=== PATIENT | female | born 1950 | race Caucasian/White ===

== ENCOUNTER → 2016-11-11 | Outpatient (CLI) | payer MEDICARE ==
[2016-01-12 12:45] VITALS: BP 155/73
[~2016-11-11] MED LIST: ALLO100T PO; CYCL10TA2 PO; FLUT1DIS3 IH; MONT10TA6 PO; NIAC500T PO
--- NOTE | 2016-11-14 17:23 | CARD ---
APPROVED REPORT Test Type: Exercise Stress Nurse/Tech: yon tovar Test Indications: soa Cardiac History and Allergies: HTN, HIGH CHOLESTEROL, SEE EHR Medications: SEE EHR Medical History: ASTHMA, HX OF PNEUMONIA,SEE EHR Resting ECG: SR Resting Heart Rate: 74 bpm Resting Blood Pressure: 160/78mmHg Pretest Chest Pain: No chest pain Nurse/Tech Notes NO RESIPATORY DISTRESS NOTED PRIOR TO EXERCISE. Consent: The procedure was explained to the patient in lay terms. Informed consent was witnessed. Guero eout was entered into GoTable. History and Stress Test performed by YON DELACRUZ Stress Symptoms SOA, ALLTHOUGH PT HAD INCREASE WORK OF BREATHING ABLE TO ANSWER QUESTIONS AT STAGE II, NO WHEEZING NO ENDY. POST EXERCISE Reason for Termination: Reached target heart rate Target HR: 131 Max HR: 143 bpm 93% of Maximum Predicted HR: 154 bpm Exercise duration: 5 min:sec, 2 Stage Exercise capacity: 7METs Max Blood Pressure: 193/69mmHg Blood Pressure response to exercise: Normal blood pressure response during stress. Heart Rate response to exercise: WNL Chest Pain: No. Arrhythmia: No. ST Change: No. INTERPRETATION Stress EKG Conclusion: THIS IS A NEGATIVE STRESS TEST FOR ISCHEMIA BY EKG. <Conclusion> THIS IS A NEGATIVE STRESS TEST FOR ISCHEMIA IN A PT WITH A POOR TO MODERATE EXERCISE TOLERANCE AND A NORMAL HEMODYNAMIC RESPONSE TO EXERCISE
== END | disposition home or self-care (01) ==
LOC: ECHO 12:17
PROVIDERS: ATTEND Internal Medicine Pulmonary Disease
DX: R06.02 Shortness of breath (principal); I10 Essential (primary) hypertension; J45.909 Unspecified asthma, uncomplicated; E78.00 Pure hypercholesterolemia, unspecified; Z87.01 Personal history of pneumonia (recurrent)
CPT/HCPCS: 93017

== ENCOUNTER → 2017-07-24 | Outpatient (CLI) | payer MEDICARE ==
[2017-04-15 15:00] VITALS: BP 130/57
[~2017-07-24] MED LIST changes: +ALBU8.5H8 INH; +ASPI-482 PO; +CITA10TA4 PO; +FLUT12AE INH; +LEVO500T59 PO; +MONT10TA9 PO; +PANT40TA5 PO; +VALS160T21 PO
--- NOTE | 2017-07-24 12:54 | RAD ---
CT chest without IV contrast Indication: Follow-up abnormal chest x-ray Technique: CT chest without IV contrast with multiplanar reformats. Comparison: CT chest from 04/11/2017 Findings: Clear neck base. Heart is normal in size. No pericardial or pleural effusion. 1.3 x 1.3 cm left axillary lymph node noted, stable from previous study, likely reactive. No left axillary, mediastinal or hilar adenopathy. Near complete resolution of previously seen pulmonary abnormalities. Small area of centrilobular nodules and tree-in-bud opacities seen in the right upper lobe (series 2 image 20). Stable 2 mm nodule in the right middle lobe on (series 2 image 33). Patchy opacities are seen in the right middle lobe and lingula. Dystrophic calcifications are seen in the left upper lobe. Visualized sections through the liver, spleen, pancreas, adrenals are within normal limits. No suspicious bony lesion. Impression: Significant interval improvement in previously seen pulmonary abnormalities with residual findings in the right upper lobe, lingula and right middle lobe. Lungs are most likely infectious in nature. Follow-up CT as clinically needed. PQRS Compliance Statement: One or more of the following individualized dose reduction techniques were utilized for this examination: 1. Automated exposure control 2. Adjustment of the mA and/or kV according to patient size 3. Use of iterative reconstruction technique
== END | disposition home or self-care (01) ==
LOC: CT 10:13
PROVIDERS: ATTEND Internal Medicine Pulmonary Disease
DX: R91.8 Other nonspecific abnormal finding of lung field (principal)
CPT/HCPCS: 71250

== ENCOUNTER → 2017-12-19 | Outpatient (CLI) | payer MEDICARE | END | disposition home or self-care (01) | LOC: US 07:52 | DX: E04.1 Nontoxic single thyroid nodule (principal) | CPT/HCPCS: 76536 ==

== ENCOUNTER 2018-05-11 15:17 | Emergency (ER) | payer MEDICARE ==
[~2018-05-11] VITALS: Ht 165.1 cm; Wt 94.3 kg
[~2018-05-11 15:17] MED LIST changes: -VALS160T21 PO; +VALS160T27 PO
[2018-05-11] MEDS ORDERED: HYDROcodone/APAP 5/325MG 1 TAB TABLET PO ONE (15:30)
--- NOTE | 2018-05-11 15:49 | EKG ---
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
--- NOTE | 2018-05-11 15:50 | PHYS DOC ---
Past Medical History Past Medical History: Asthma, Hypertension Additional Past Medical Histor: Hyperlipiedema, GOUT Past Surgical History: Cholecystectomy, Tonsillectomy, Other Additional Past Surgical Histo: NECK, "tie my kidney up, it fell down" Alcohol Use: None Drug Use: None Adult General Chief Complaint Chief Complaint: CHEST WALL PAIN HPI HPI Patient is a 67 year old female who presents with right back of shoulder, right shoulder and right chest pain since 1430 today. Patient states it hurts to breathe and is sharp. Patient denies shortness of air. Patient states she has had a upper respiratory infection with a cough, head congestion, and sneezing since Monday. Review of Systems Review of Systems Constitutional: Denies fever or chills [] Eyes: Denies change in visual acuity, redness, or eye pain [] HENT: Nasal congestion. Denies sore throat [] Respiratory: Cough. Denies shortness of breath [] Cardiovascular: Right chest pain, right shoulder blade pain GI: Denies abdominal pain, nausea, vomiting, bloody stools or diarrhea [] : Denies dysuria or hematuria [] Musculoskeletal: Denies back pain or joint pain [] Integument: Denies rash or skin lesions [] Neurologic: Denies headache, focal weakness or sensory changes [] Endocrine: Denies polyuria or polydipsia [] All other systems were reviewed and found to be within normal limits, except as documented in this note. Current Medications Current Medications Current Medications Medications (Trade) Dose Ordered Sig/Amna Start Time Stop Time Status Last Admin Dose Admin Acetaminophen/ Hydrocodone Bitart (Lortab 5/325) 1 tab 1X ONCE 05/11/18 15:30 05/11/18 15:41 DC 05/11/18 16:38 1 TAB Albuterol/ Ipratropium (Duoneb) 3 ml 1X ONCE 05/11/18 16:45 05/11/18 16:46 DC 05/11/18 16:49 3 ML Ondansetron HCl (Zofran) 4 mg 1X ONCE 05/11/18 16:15 05/11/18 16:18 DC 05/11/18 16:37 4 MG Prednisone (Prednisone) 50 mg 1X ONCE 05/11/18 16:45 05/11/18 16:46 DC 05/11/18 16:43 50 MG Allergies Allergies Allergies Coded Allergies Type Severity Reaction Last Updated Verified No Known Drug Allergies 08/19/13 No Physical Exam Physical Exam Constitutional: Well developed, well nourished, no acute distress, non-toxic appearance. [] HENT: Normocephalic, atraumatic, bilateral external ears normal, oropharynx moist, no oral exudates, nose normal. [] Eyes: PERRLA, EOMI, conjunctiva normal, no discharge. [] Neck: Normal range of motion, no tenderness, supple, no stridor. [] Cardiovascular:Heart rate regular rhythm, no murmur. Right chest and shoulder are tender to palpation.[] Lungs & Thorax: Bilateral breath sounds clear to auscultation [] Abdomen: Bowel sounds normal, soft, no tenderness, no masses, no pulsatile masses. [] Skin: Warm, dry, no erythema, no rash. [] Back: No tenderness, no CVA tenderness. [] Extremities: No tenderness, no cyanosis, no clubbing, ROM intact, no edema. [] Neurologic: Alert and oriented X 3, normal motor function, normal sensory function, no focal deficits noted. [] Psychologic: Affect normal, judgement normal, mood normal. [] Current Patient Data Vital Signs Vital Signs Date Time Temp Pulse Resp B/P (MAP) Pulse Ox O2 Delivery O2 Flow Rate FiO2 05/11/18 16:50 95 Nasal Cannula 05/11/18 16:38 16 05/11/18 15:20 99.4 95 193/72 (112) 99.4 Lab Values Laboratory Tests Test 05/11/18 16:00 White Blood Count 11.9 x10^3/uL (4.0-11.0) H Red Blood Count 4.90 x10^6/uL (3.50-5.40) Hemoglobin 14.0 g/dL (12.0-15.5) Hematocrit 41.6 % (36.0-47.0) Mean Corpuscular Volume 85 fL (79-100) Mean Corpuscular Hemoglobin 29 pg (25-35) Mean Corpuscular Hemoglobin Concent 34 g/dL (31-37) Red Cell Distribution Width 14.1 % (11.5-14.5) Platelet Count 191 x10^3/uL (140-400) Neutrophils (%) (Auto) 75 % (31-73) H Lymphocytes (%) (Auto) 11 % (24-48) L Monocytes (%) (Auto) 9 % (0-9) Eosinophils (%) (Auto) 4 % (0-3) H Basophils (%) (Auto) 0 % (0-3) Neutrophils # (Auto) 9.0 x10^3uL (1.8-7.7) H Lymphocytes # (Auto) 1.3 x10^3/uL (1.0-4.8) Monocytes # (Auto) 1.1 x10^3/uL (0.0-1.1) Eosinophils # (Auto) 0.5 x10^3/uL (0.0-0.7) Basophils # (Auto) 0.0 x10^3/uL (0.0-0.2) D-Dimer (Ale) 0.45 ug/mlFEU (0.00-0.50) Sodium Level 140 mmol/L (136-145) Potassium Level 3.7 mmol/L (3.5-5.1) Chloride Level 104 mmol/L (98-107) Carbon Dioxide Level 25 mmol/L (21-32) Anion Gap 11 (6-14) Blood Urea Nitrogen 14 mg/dL (7-20) Creatinine 0.9 mg/dL (0.6-1.0) Estimated GFR (Cockcroft-Gault) 62.5 Glucose Level 103 mg/dL (70-99) H Calcium Level 9.2 mg/dL (8.5-10.1) Troponin I Quantitative < 0.017 ng/mL (0.000-0.055) Laboratory Tests 05/11/18 16:00 Laboratory Tests 05/11/18 16:00 EKG EKG Sinus rhythm, no STEMI[] Interpretation Time: [address] Silva Radiology/Procedures Radiology/Procedures Chest x-ray Impressions: [facility] [address] [place], [place] [id number] IMAGING REPORT Signed PATIENT: ARACELI CESPEDES ACCOUNT: [id number] : 1950 LOCATION: ER AGE: 67 SEX: F EXAM STATUS: PRE ER ORD. PHYSICIAN: TERRANCE TEE APRN REASON: chest pain, cough. PROCEDURE: CHEST PA & LATERAL EXAM: Chest, 2 views. HISTORY: Cough. COMPARISON: CT dated 07/24/2017. FINDINGS: Frontal and lateral views of the chest are obtained. There is diffuse lower lobe predominant increased interstitial opacity without meredith congestion. There is no consolidated infiltrate. There is suspected emphysema. The heart is normal in size. There are calcified granulomas. There is cervical spinal fusion instrumentation. IMPRESSION: 1. Mild diffuse lower lobe predominant increased interstitial opacity without meredith congestion or focal infiltrate. 2. Mild emphysema. Electronically signed by: Brittney Bettencourt MD (05/11/2018 4:26 PM) [facility] DICTATED and SIGNED BY: BRITTNEY BETTENCOURT MD DATE: 05/11/18 1519 Course & Med Decision Making Course & Med Decision Making Patient is a 67 year old female who presents with right back of shoulder, right shoulder and right chest pain since 1430 today. Patient states it hurts to breathe and is sharp. Patient denies shortness of air. Patient states she has had a upper respiratory infection with a cough, head congestion, and sneezing since Monday. Patient denies fever. Patient states that she took some DayQuil today and use some icy hot and states it has not helped her. Patient denies urinary symptoms, nausea, vomiting, diarrhea. Patient states she has not been coughing up any mucus. Patient states that she does have yellow mucus when she blows her nose. She rates her pain a 7 out of 10. Patient has a history of pneumonia in 2016, pneumonia and sepsis in 2017, asthma. Upon examination patient's lungs are clear to auscultation. Patient's EKG is normal sinus rhythm and read by Dr. Silva. Patient has no extremity edema or numbness and tingling. Patient speaks in full sentences. When palpating patient's chest the right side of her chest and shoulder and back and shoulder she states is tender. Patients skin is pink warm and dry. Patient is temperature is 99.4. Heart rate 95, respirations are 19, patient is 96% on room air. Patient's chest x-ray shows 1. Mild diffuse lower lobe predominant increased interstitial opacity without meredith congestion or focal infiltrate. 2. Mild emphysema. WBC is 11.9. Troponin is normal. Patient is given a DuoNeb and prednisone 50mg. patient will be sent home with a prescription for azithromycin and prednisone that she can start tomorrow. Patient should follow up with her primary care as soon as possible. I have gone over the plan for this patient with Dr Silva. Patient is discharged home in stable condition. [] Dragon Disclaimer Dragon Disclaimer This electronic medical record was generated, in whole or in part, using a voice recognition dictation system. Departure Departure Impression: Primary Impression: Respiratory infection Additional Impressions: Cough Chest wall pain Disposition: HOME, SELF-CARE Condition: STABLE Referrals: CAROLINA IRIZARRY MD (PCP) Patient Instructions: Chest Wall Pain, Cough, Adult Additional Instructions: Follow up with your primary care physician. Take medications as prescribed. Scripts Prednisone (PREDNISONE) 50 Mg Tablet 1 TAB PO DAILY, #4 TAB Prov: TERRANCE TEE APRN 05/11/18 Azithromycin (AZITHROMYCIN TABLET) 250 Mg Tablet 1 PKG PO UD, #6 TAB Prov: TERRANCE TEE APRN 05/11/18 Problem Qualifiers TERRANCE TEE APRN May 11, 2018 15:50
[2018-05-11] MEDS ORDERED: ONDANSETRON PF 4 MG/2 ML VIAL. IV ONE (16:15)
[2018-05-11 16:16] LABS: BASO % 0 % (0-3); EOS # 0.5 x10^3/uL (0.0-0.7); EOS % 4 % (0-3); HEMATOCRIT 41.6 % (36.0-47.0); LYMPH # 1.3 x10^3/uL (1.0-4.8); LYMPH % 11 % (24-48); MEAN CORPUSCULAR HEMOGLOBIN 29 pg (25-35); MEAN CORPUSCULAR HGB CONC 34 g/dL (31-37); MEAN CORPUSCULAR VOLUME 85 fL (79-100); MONO # 1.1 x10^3/uL (0.0-1.1); MONO % 9 % (0-9); NEUT % 75 % (31-73); PLATELET COUNT 191 x10^3/uL (140-400); RED CELL DISTRIBUTION WIDTH 14.1 % (11.5-14.5); WHITE BLOOD COUNT 11.9 x10^3/uL (4.0-11.0)
[2018-05-11 16:20] LABS: CALCIUM 9.2 mg/dL (8.5-10.1); CREATININE 0.9 mg/dL (0.6-1.0); GFR 62.5; POTASSIUM 3.7 mmol/L (3.5-5.1)
--- NOTE | 2018-05-11 16:30 | RAD ---
EXAM: Chest, 2 views. HISTORY: Cough. COMPARISON: CT dated 07/24/2017. FINDINGS: Frontal and lateral views of the chest are obtained. There is diffuse lower lobe predominant increased interstitial opacity without meredith congestion. There is no consolidated infiltrate. There is suspected emphysema. The heart is normal in size. There are calcified granulomas. There is cervical spinal fusion instrumentation. IMPRESSION: 1. Mild diffuse lower lobe predominant increased interstitial opacity without meredith congestion or focal infiltrate. 2. Mild emphysema. Electronically signed by: Brittney Nicholson MD (05/11/2018 4:26 PM) [place] [id number]
[2018-05-11] MEDS ORDERED: AZIT250T6 PO (16:44)
[2018-05-11] MEDS ORDERED: PRED50TA PO (16:44)
[2018-05-11] MEDS ORDERED: IPRATRPIUM/ALBUTEROL 0.5/2.5MG 3 ML NEBU. NEB ONE (16:45)
[2018-05-11] MEDS ORDERED: predniSONE 10 MG TABLET PO ONE (16:45)
[2018-05-11 17:01] VITALS: BP 143/63
== END 2018-05-11 17:28 | disposition home or self-care (01) ==
LOC: ER 15:17
DX: R07.89 Other chest pain (principal); J06.9 Acute upper respiratory infection, unspecified; M25.511 Pain in right shoulder; J45.909 Unspecified asthma, uncomplicated; E78.5 Hyperlipidemia, unspecified; I10 Essential (primary) hypertension; M10.9 Gout, unspecified
CPT/HCPCS: 36415; 71046; 80048; 84484; 85025; 85379; 93005; 94640; 96374; 99285; J2405; J7512; J7620

== ENCOUNTER 2020-12-28 12:28 | Emergency (ER) | payer MEDICARE ==
[~2020-12-28] VITALS: Ht 165.1 cm; Wt 91.0 kg
[~2020-12-28 12:28] MED LIST changes: -AZIT250T PO
--- NOTE | 2020-12-28 13:30 | ED.ADGEN ---
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 6 days ago patient had a surgery for a partial left nephrectomy at done, the next day when she woke up she says she was very short of breath and had O2 sats below 90%. Denies any chest pain. Patient states there was a x-ray done and she was placed on oxygen and sent home with oxygen. Patient was having a mass removed that is likely cancerous from her kidney. Is not on any blood thinners. Patient has a history of mild asthma that is well maintained and has not had problems with it recently. Denies any fevers, but has had a cough with blood. Review of Systems: Review of Systems: All other systems within normal limits except for as noted in the HPI Current Medications: Current Medications Medications (Trade) Dose Ordered Sig/Amna Start Time Stop Time Status Last Admin Dose Admin Info (CONTRAST GIVEN -- Rx MONITORING) 1 each PRN DAILY PRN 12/28/20 13:45 12/30/20 13:44 Iohexol (Omnipaque 350 Mg/ml) 100 ml 1X ONCE 12/28/20 13:45 12/28/20 13:46 DC 12/28/20 14:14 100 ML Allergies: Allergies: Allergies Coded Allergies Type Severity Reaction Last Updated Verified No Known Drug Allergies 08/19/13 No Physical Exam: PE: Constitutional: Well developed, well nourished, no acute distress, non-toxic appearance. [] HENT: Normocephalic, atraumatic, bilateral external ears normal, nose normal. [] Eyes: PERRLA, conjunctiva normal, no discharge. [] Neck: No rigidity, supple, no stridor. [] Cardiovascular: Regular rate and rhythm, brisk cap refill [] Lungs & Thorax: Non labored symmetric respirations, no tachypnea or respiratory distres faint and expiratory wheezes bilaterally [] Abdomen: Soft, nondistended, well-healing left mid abdominal surgical scar with ecchymosis. Skin: Warm, dry, no erythema, no rash. [] Back: Unremarkable Extremities: No deformities, range of motion grossly intact, no lower extremity edema [] Neurologic: Alert and oriented X 3, no focal deficits noted. [] Psychologic: Affect normal, judgement normal, mood normal. [] Current Patient Data: Labs: Laboratory Tests Test 12/28/20 13:33 White Blood Count 7.8 x10^3/uL (4.0-11.0) Red Blood Count 4.35 x10^6/uL (3.50-5.40) Hemoglobin 12.4 g/dL (12.0-15.5) Hematocrit 35.1 % (36.0-47.0) L Mean Corpuscular Volume 81 fL (79-100) Mean Corpuscular Hemoglobin 29 pg (25-35) Mean Corpuscular Hemoglobin Concent 35 g/dL (31-37) Red Cell Distribution Width 13.4 % (11.5-14.5) Platelet Count 281 x10^3/uL (140-400) Neutrophils (%) (Auto) 68 % (31-73) Lymphocytes (%) (Auto) 19 % (24-48) L Monocytes (%) (Auto) 10 % (0-9) H Eosinophils (%) (Auto) 3 % (0-3) Basophils (%) (Auto) 1 % (0-3) Neutrophils # (Auto) 5.3 x10^3/uL (1.8-7.7) Lymphocytes # (Auto) 1.5 x10^3/uL (1.0-4.8) Monocytes # (Auto) 0.8 x10^3/uL (0.0-1.1) Eosinophils # (Auto) 0.2 x10^3/uL (0.0-0.7) Basophils # (Auto) 0.0 x10^3/uL (0.0-0.2) Prothrombin Time 12.8 SEC (11.7-14.0) Prothrombin Time INR 1.0 (0.8-1.1) Troponin I Quantitative < 0.017 ng/mL (0.000-0.055) Laboratory Tests 12/28/20 13:33 Vital Signs: Vital Signs Date Time Temp Pulse Resp B/P (MAP) Pulse Ox O2 Delivery O2 Flow Rate FiO2 12/28/20 13:20 98.6 71 16 144/71 (95) 96 Room Air 98.6 EKG: EKG: Sinus rhythm, heart rate 60 bpm, normal axis, no ST elevation or depression, no ectopy. [] Heart Score: C/O Chest Pain: No Risk Factors: Risk Factors: DM, Current or recent (<one month) smoker, HTN, HLP, family history of CAD, obesity. Risk Scores: Score 0 - 3: 2.5% MACE over next 6 weeks - Discharge Home Score 4 - 6: 20.3% MACE over next 6 weeks - Admit for Clinical Observation Score 7 - 10: 72.7% MACE over next 6 weeks - Early Invasive Strategies Radiology/Procedures: Radiology/Procedures: PATIENT: ARACELI CESPEDES GACCOUNT: [id number]#: [id number] : 1950 LOCATION: ER AGE: 70 SEX: F EXAM STATUS: REG ER ORD. PHYSICIAN: ZORAIDA LINDA MD REASON: hypoxia, SOB PROCEDURE: CT ANGIOGRAPHY CHEST CHEST CT WITH CONTRAST CLINICAL INDICATIONS: Hypoxia. Shortness of breath. TECHNIQUE: After IV infusion of 100 cc of Omnipaque 350, helical CT scanning of the chest through the level of the adrenal glands was performed. PQRS compliance Statement One or more of the following individualized dose reduction techniques were utilized for this study: 1. Automated exposure control 2. Adjustment of the mA and/or kV according to patient size 3. Use of iterative reconstruction technique FINDINGS: No pulmonary embolism is evident. The heart size is normal and no pericardial effusion is seen. No focal aneurysmal dilatation or dissection of the thoracic aorta is seen. Reactive hilar and mediastinum lymph nodes are seen. Otherwise no bulky thoracic lymphadenopathy is seen. Small right-sided pleural effusion is seen. No pneumothorax is seen. There are bilateral groundglass lung infiltrates. Small peripheral subpleural lung infiltrates are seen within the right upper lobe. More consolidative infiltrate is seen within the posterior basal segment of the right lower lobe and superior segment of the right lower lobe. There is an infiltrate present within the inferior segment lingula posteriorly. There is a small focus of adherent mucus along the posterior wall of the left mainstem bronchus. No lytic process is seen. There is a mass of the medial aspect of the right breast measuring about 27 mm. There is no adrenal enlargement. A tiny hiatal hernia is evident. IMPRESSION: No pulmonary embolism. Bilateral groundglass lung infiltrates. More consolidative infiltrate is present within the right lower lobe. Correlation with Covid 19 test is recommended. Reactive hilar and mediastinal lymph nodes. 27 mm mass of the right breast. Recommend outpatient diagnostic mammography. [] Course & Med Decision Making: Course & Med Decision Making Pertinent Labs and Imaging studies reviewed. (See chart for details) Patient has patchy groundglass atypical opacities on her CT, has had both of her Covid vaccines about 3 weeks out now. [] Dragon Disclaimer: Dragon Disclaimer: This electronic medical record was generated, in whole or in part, using a voice recognition dictation system. Departure Departure Impression: Primary Impression: Atypical pneumonia Disposition: HOME / SELF CARE / HOMELESS Condition: STABLE Referrals: DENI MEZA DO (PCP) Patient Instructions: Oxygen Use at Home Additional Instructions: Continue to use your incentive spirometer and home oxygen as needed to maintain a O2 level above 92%. Incidental small breast mass identified on CT, recommend follow-up with mammogram. Scripts Azithromycin (ZITHROMAX) 250 Mg Tablet 1 PKG PO UD for antibiotic, #6 TAB Prov: ZORAIDA LINDA MD 12/28/20 Prednisone (PREDNISONE) 50 Mg Tablet 1 TAB PO DAILY for steroid for 5 Days, #5 TAB Prov: ZORAIDA LINDA MD 12/28/20 ZORAIDA LINDA MD December 28, 2020 13:30
[2020-12-28] MEDS ORDERED: CONTRAST GIVEN. MC PRN (13:45)
[2020-12-28] MEDS ORDERED: IOHEXOL 350 MG/ML 100 ML VIAL. IV ONE (13:45)
[2020-12-28 13:54] LABS: BASO % 1 % (0-3); EOS # 0.2 x10^3/uL (0.0-0.7); EOS % 3 % (0-3); HEMATOCRIT 35.1 % (36.0-47.0); HEMOGLOBIN 12.4 g/dL (12.0-15.5); LYMPH # 1.5 x10^3/uL (1.0-4.8); LYMPH % 19 % (24-48); MEAN CORPUSCULAR HEMOGLOBIN 29 pg (25-35); MEAN CORPUSCULAR HGB CONC 35 g/dL (31-37); MEAN CORPUSCULAR VOLUME 81 fL (79-100); MONO # 0.8 x10^3/uL (0.0-1.1); MONO % 10 % (0-9); NEUT # 5.3 x10^3/uL (1.8-7.7); NEUT % 68 % (31-73); PLATELET COUNT 281 x10^3/uL (140-400); RED BLOOD COUNT 4.35 x10^6/uL (3.50-5.40); RED CELL DISTRIBUTION WIDTH 13.4 % (11.5-14.5); WHITE BLOOD COUNT 7.8 x10^3/uL (4.0-11.0)
[2020-12-28 14:09] LABS: PROTHROMBIN TIME PATIENT 12.8 SEC (11.7-14.0)
--- NOTE | 2020-12-28 14:28 | RAD ---
CHEST CT WITH CONTRAST CLINICAL INDICATIONS: Hypoxia. Shortness of breath. TECHNIQUE: After IV infusion of 100 cc of Omnipaque 350, helical CT scanning of the chest through the level of the adrenal glands was performed. PQRS compliance Statement One or more of the following individualized dose reduction techniques were utilized for this study: 1. Automated exposure control 2. Adjustment of the mA and/or kV according to patient size 3. Use of iterative reconstruction technique FINDINGS: No pulmonary embolism is evident. The heart size is normal and no pericardial effusion is s een. No focal aneurysmal dilatation or dissection of the thoracic aorta is seen. Reactive hilar and m ediastinum lymph nodes are seen. Otherwise no bulky thoracic lymphadenopathy is seen. Small right-adolph ed pleural effusion is seen. No pneumothorax is seen. There are bilateral groundglass lung infiltrate s. Small peripheral subpleural lung infiltrates are seen within the right upper lobe. More consolidat ely infiltrate is seen within the posterior basal segment of the right lower lobe and superior segmen t of the right lower lobe. There is an infiltrate present within the inferior segment lingula posteri zenaida. There is a small focus of adherent mucus along the posterior wall of the left mainstem bronchus . No lytic process is seen. There is a mass of the medial aspect of the right breast measuring about 27 mm. There is no adrenal enlargement. A tiny hiatal hernia is evident. IMPRESSION: No pulmonary embolism. Bilateral groundglass lung infiltrates. More consolidative infiltrate is present within the right low er lobe. Correlation with Covid 19 test is recommended. Reactive hilar and mediastinal lymph nodes. 27 mm mass of the right breast. Recommend outpatient diagnostic mammography. Electronically signed by: Baakri Martins MD (12/28/2020 2:26 PM) [id number]
[2020-12-28] MEDS ORDERED: PRED50TA PO (14:43)
[2020-12-28] MEDS ORDERED: AZIT250T PO (14:43)
[2020-12-28 14:49] VITALS: BP 150/68
--- NOTE | 2020-12-28 17:20 | EKG ---
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
== END 2020-12-28 14:51 | disposition home or self-care (01) ==
LOC: ER 12:28
DX: J18.9 Pneumonia, unspecified organism (principal); J45.909 Unspecified asthma, uncomplicated; E78.00 Pure hypercholesterolemia, unspecified; I10 Essential (primary) hypertension; M10.9 Gout, unspecified
CPT/HCPCS: 36415; 71275; 84484; 85025; 85610; 93005; 99285; Q9967

== ENCOUNTER → 2020-12-28 | Outpatient (CLI) | payer MEDICARE ==
[~2020-12-28] MED LIST changes: +ALBU2.5V8 INH; -ALBU8.5H8 INH; +AZIT250T PO; +AZIT250T6 PO; +MONT10TA49 PO; -MONT10TA6 PO; -MONT10TA9 PO; -PANT40TA5 PO; +PANT40TA77 PO; +PRED50TA PO
[2020-12-28 11:37] LABS: CALCIUM 9.1 mg/dL (8.5-10.1); CREATININE 0.8 mg/dL (0.6-1.0); GFR 70.9; POTASSIUM 3.2 mmol/L (3.5-5.1)
== END ==
LOC: LAB 11:05
PROVIDERS: ATTEND Internal Medicine Pulmonary Disease
DX: R06.02 Shortness of breath (principal)
CPT/HCPCS: 36415; 80048; 85379